=== PATIENT | female | born 1950 | race Caucasian/White ===

== ENCOUNTER 2019-06-02 14:23 | Emergency (ER) | payer MEDICARE, SELFPAY ==
--- NOTE | ~2019-06-02 | CT_ITS ---
EXAMINATION: CT abdomen pelvis wo con DATE: 06/02/2019 15:24 INDICATION: Right flank pain TECHNIQUE: Computed tomography (CT) of the abdomen and pelvis was performed without intravenous contr ast. Automated exposure control and iterative reconstruction technique were employed. Exam dose: 256 .43 mGy-cm total exam DLP. COMPARISON: None. FINDINGS: Normal heart size. No pericardial or pleural effusion. The liver, gallbladder, spleen, pancreas, adrenal glands are unremarkable. No bile duct or pancreati c duct dilatation. No renal mass lesion is evident on this limited noncontrast examination. There are several nonobstructing small left renal calculi. There is a 3 mm obstructing right ureterovesical calculus, with moderate right hydronephrosis. There is an 8.5 mm calculus in the dependent aspect of the right renal pelvis, measuring 1398 Hounsfi eld units. There is air in the right renal collecting system, including air in the calyceal region and right coral al pelvis, and air in the urinary bladder, suggesting either recent instrumentation or infection. Small sliding hiatal hernia. Normal appendix. Diverticulosis of the right and especially prominent at the left colon, particularly sigmoid colon. No evidence of diverticulitis. No bowel obstruction or free air. There is atherosclerotic calcification of the abdominal aorta and iliac arteries. Old fracture deformity of the right proximal femur. Chronic expanded sacral neural foramina. IMPRESSION: 3 mm obstructing right ureterovesical calculus, with moderate right hydronephrosis 8.5 mm calculus in the dependent aspect of the right renal pelvis Air in the right renal collecting system, including air in the calyceal region and right renal pelvis , and air in the urinary bladder, suggesting either recent instrumentation or infection Small sliding hiatal hernia Diverticulosis of the colon Reviewed, dictated and finalized at [facility]. Reviewed, dictated and finalized at location [facility]. EL SERVICE APPRENTICE IMPRESSION: 3 mm obstructing right ureterovesical calculus, with moderate righ t hydronephrosis 8.5 mm calculus in the dependent aspect of the right renal pelvis Air in the right renal collecting system, including air in the calyceal region and right renal pelvis, and air in the urinary bladder, suggesting either recen t instrumentation or infection Small sliding hiatal hernia Diverticulosis of the colon
[2019-06-02 14:35] VITALS: BP 134/71; PULSE 52; RESP 20; TEMP 36.6; O2SAT 98
--- NOTE | 2019-06-02 14:49 | ECG_ITS ---
Measurements Intervals [place] Rate: 49 P: 44 TX: 154 QRS: 38 QRSD: 86 T: 73 QT: 447 QTc: 406 Interpretive Statements SINUS BRADYCARDIA EARLY PRECORDIAL R/S TRANSITION ST-T WAVE ABNORMALITY IN ANTERIOR LEADS- CONSIDER ISCHEMIA BASELINE ARTIFACT- I, II, III, AVR, AVL, AVF, V6 ABNORMAL ECG Electronically Signed On 06-02-2019 16:20:03 CYLINDER PRESS FEEDER by John Diaz D.O.
[2019-06-02] MEDS: SODIUM CHLORIDE 0.9% IV 1,000 ML 999 ML IV CONT (14:57)
[2019-06-02] MEDS: ONDANSETRON INJ 4 MG/2 ML VIAL IV PUSH (14:57)
[2019-06-02] MEDS: KETOROLAC 30 MG/ML VIAL (*BKC) IV PUSH (14:58)
[2019-06-02 15:16] LABS: Hemoglobin 12.9 g/dL (11.7-13.8); Mean Corpuscular HGB Conc 33.9 g/dL (32.0-36.0); Mean Corpuscular Hemoglobin 29.7 pg (27.0-31.0); Mean Corpuscular Volume 87.4 fL (78.0-102.0); Mean Platelet Volume 8.7 fl (9.2-11.8); Platelet Count Result 256 K/mm3 (150-420); Red Blood Count 4.35 M/mm3 (4.20-5.40); Red Cell Distribution Width 13.3 % (11.6-14.4); White Blood Count 9.6 K/mm3 (4.8-10.8)
[2019-06-02 15:35] LABS: Alanine Aminotransferase 10 U/L (14-59); Albumin Level 3.4 g/dL (3.4-5.0); Alkaline Phosphatase 62 U/L (46-116); Anion Gap 13.8 mmol/L (7-16); Aspartate Amino Transferase 13 U/L (15-37); Bilirubin,Total 0.3 mg/dL (0.00-1.00); Blood Urea Nitrogen 13 mg/dL (7-18); Calcium 8.5 mg/dL (8.5-10.1); Carbon Dioxide 27 mmol/L (21-32); Chloride 105 mmol/L (98-108); Estimated CRCL calculation 52 ml/min; Estimated Glomerular Filt Rate 58; Glucose 113 mg/dL (70-99); Lipase 134 U/L (73-393); Osmolality Calculated 295 mOsm/kg (285-295); Potassium 3.8 mmol/L (3.5-5.1); Sodium 142 mmol/L (136-145)
[2019-06-02 15:39] LABS: Troponin I < 0.02 ng/mL (0.00-0.056)
--- NOTE | 2019-06-02 16:27 | ED.ABDPAIN ---
HPI - Abdominal Pain General Chief Complaint: Abdominal Pain Stated Complaint: possible kidney stone Source: patient Mode of arrival: ambulatory Limitations: no limitations History of Present Illness HPI narrative: 69-year-old female presents to the emergency department with right flank pain with some currently no dysuria no hematuria no fever or chills, patient has some right flank pain started [id number] prior to arrival to the emergency department rates her pain about 8/10 with some nausea and episode of vomiting with some no abdominal pain no chest pain no shortness of breath does have a history of atherosclerotic heart disease, hypertension, reflux disease hyperlipidemia. MD elicited complaint: flank pain Pertinent past history: kidney stones Onset (ago): hour(s) Pain Consistency: constant Location: R flank Severity: moderate Pain scale (0-10): 8 Radiation: none Exacerbating factors: vomiting Relieving factors: nothing Associated symptoms: nausea and vomiting Related Data Home Medications Medication Instructions Recorded Confirmed alendronate 70 mg PO WEEKLY 06/02/19 06/02/19 aspirin [Aspirin Low Dose] 81 mg PO DAILY 06/02/19 06/02/19 hydroxyzine HCl 25 mg PO HS PRN 06/02/19 06/02/19 isosorbide mononitrate 15 mg PO DAILY 06/02/19 06/02/19 lisinopril 10 mg PO DAILY 06/02/19 06/02/19 metoprolol tartrate 50 mg PO Q12H 06/02/19 06/02/19 omeprazole 20 mg PO DAILY 06/02/19 06/02/19 oxycodone 5 mg PO DAILY PRN 06/02/19 06/02/19 rosuvastatin 40 mg PO DAILY 06/02/19 06/02/19 Allergies Allergy/AdvReac Type Severity Reaction Status Date / Time bee venom protein (honey bee) Allergy Rash Verified 06/02/19 15:25 [bees] gadobenic acid Allergy Rash Verified 06/02/19 15:25 [From contrast - MRI] Penicillins Allergy Rash Verified 06/02/19 15:25 Review of Systems Review of Systems: All systems reviewed & are unremarkable except as noted in HPI and below PMFSH Past Medical History Medical History CAD (coronary artery disease) HLD (hyperlipidemia) HTN (hypertension) Osteoporosis Exam Const: General: no acute distress and alert Orientation/consciousness: patient oriented x3 HENMT: Head: normal to inspection Eyes: Conjunctivae: conjunctivae normal Pupils: Equal, round and reactive pupils present Neck: Neck: normal visual inspection Chest: Chest palpation & inspection: normal inspection of the chest Resp: Effort & Inspection: normal respiratory effort Auscultation: clear to auscultation bilaterally Cardio: Rate: regular rate and bradycardic GI: GI Palp: Yes Soft to palpation : General: Yes CVA tenderness Back/Spine/Pelvis: Back: CVA tenderness Skin: General skin exam: normal color Rashes: no rashes Neuro: General: patient oriented x3, moves all extremities and no meningeal signs Extrem: General: normal to inspection Psych: Mental Status: mental status grossly normal Course Vital Signs Vital signs: Vital Signs Temperature 36.6 C 06/02/19 14:35 Pulse Rate 52 L 06/02/19 14:35 Respiratory Rate 06/02/19 14:35 Blood Pressure 134/71 06/02/19 14:35 Pulse Oximetry 98 06/02/19 14:35 Temperature 36.6 C 06/02/19 14:35 Pulse Rate 52 L 06/02/19 14:35 Respiratory Rate 06/02/19 14:35 Blood Pressure 134/71 06/02/19 14:35 Pulse Oximetry 98 06/02/19 14:35 MDM - Abdominal Pain Lab Data Attestation: I reviewed the patient's lab results. Result diagrams: 06/02/19 15:08 06/02/19 15:08 Labs: Lab Results 06/02/19 06/02/19 Range/Units 15:08 15:08 WBC 9.6 (4.8-10.8) K/mm3 RBC 4.35 (4.20-5.40) M/mm3 Hgb 12.9 (11.7-13.8) g/dL Hct 38.0 (35.0-42.0) % MCV 87.4 (78.0-102.0) fL MCH 29.7 (27.0-31.0) pg MCHC 33.9 (32.0-36.0) g/dL RDW 13.3 (11.6-14.4) % Plt Count 256 (150-420) K/mm3 MPV 8.7 L (9.2-11.8) fl Sodium 142
[2019-06-02 17:02] VITALS: BP 110/64; PULSE 62; RESP 18; O2SAT 94
== END 2019-06-02 17:02 | disposition home or self-care (01) ==
PROVIDERS: Emergency Provider Emergency Medicine
DX: N20.0 Calculus of kidney (principal); I25.10 Atherosclerotic heart disease of native coronary artery without angina pectoris; E78.5 Hyperlipidemia, unspecified; I10 Essential (primary) hypertension; M81.0 Age-related osteoporosis without current pathological fracture
CPT/HCPCS: 36415; 74176; 80053; 83690; 84484; 85027; 93005; 96361; 96374; 96375; 99284; J1885; J2405; J7030

== ENCOUNTER 2019-06-06 19:08 | Emergency (ER) | payer MEDICARE, OTHER, SELFPAY ==
--- NOTE | ~2019-06-06 | XR_ITS ---
EXAMINATION: XR chest port-a-cath/central INDICATION: Central line placement TECHNIQUE: Portable AP chest at 2324 hours with expiration and inspiration COMPARISON: 1956 hours FINDINGS: A right subclavian central venous catheter is been inserted which ends with its tip in the proximal superior vena cava. No pneumothorax is identified. The lungs are free of acute opacities. Th ere is no pleural effusion. The heart size is upper limits of normal for technique. IMPRESSION: 1. Right subclavian central venous catheter insertion. No pneumothorax. Reviewed, dictated and finalized at location [facility]. ITURE PAINTER
--- NOTE | ~2019-06-06 | CT_ITS ---
EXAMINATION: CT brain wo con INDICATION: Transient alteration of awareness COMPARISON: None TECHNIQUE: Standard unenhanced head CT. The dose-length product (DLP) was 529.67 mGy-cm. The mA was a djusted according to patient size. Iterative reconstruction technique was employed. FINDINGS: There is no acute intraparenchymal hemorrhage. No evidence of mass lesion. No evidence of a cute infarction. There is mild periventricular and subcortical hypodensity probably related to small vessel ischemic disease. There is mild prominence of the sulci and ventricles related to cerebral atr ophy. Intracranial calcified cerebral atherosclerosis is noted. There are no extra-axial collections. There is no mass effect or midline shift. Changes in the globes are likely from ocular lens surgery. The visualized sinuses and mastoid air cells are well aerated. IMPRESSION: 1. No acute intracranial abnormality. 2. Age related findings. Reviewed, dictated and finalized at location A. MBLER ARRANGER
--- NOTE | ~2019-06-06 | XR_ITS ---
EXAMINATION: XR chest 1V portable INDICATION: Weakness and chills TECHNIQUE: Portable AP chest at 1956 hours COMPARISON: None available FINDINGS: The lungs are free of acute opacities. There is no pleural effusion or pneumothorax. The ca rdiomediastinal silhouette is normal for technique. The visualized osseous structures are unremarkabl e. IMPRESSION: 1. No acute cardiopulmonary abnormality. Reviewed, dictated and finalized at location A. NTORY REPRESENTATIVE
[2019-06-06 19:15] VITALS: BP 87/49; PULSE 74; RESP 16; TEMP 37; O2SAT 95
[2019-06-06] MEDS: SODIUM CHLORIDE 0.9% IV 1,000 ML 999 ML IV CONT (19:45)
--- NOTE | 2019-06-06 19:45 | ECG_ITS ---
Measurements Intervals [place] Rate: 72 P: 28 NV: 147 QRS: -1 QRSD: 88 T: 40 QT: 397 QTc: 434 Interpretive Statements SINUS RHYTHM RSR' IN V1 OR V2, CONSIDER RIGHT VENTRICULAR HYPERTROPHY OR RIGHT VCD LOW QRS VOLTAGE IN PRECORDIAL LEADS BORDERLINE ST-T WAVE ABNORMALITY- ANTERIOR LEADS BASELINE ARTIFACT- I, II, AVR BORDERLINE ECG Electronically Signed On 06-07-2019 7:15:49 WHEEL INSPECTOR by John Diaz D.O.
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
--- NOTE | 2019-06-06 20:12 | PC.NURSE ---
Pt on bedpan attempting obtain urine sample.
[2019-06-06 20:13] VITALS: BP 132/42
[2019-06-06 20:13] LABS: Hemoglobin 10.2 g/dL (11.7-13.8); Mean Corpuscular Hemoglobin 29.5 pg (27.0-31.0); Mean Corpuscular Volume 86.7 fL (78.0-102.0); Mean Platelet Volume 9.9 fl (9.2-11.8); Platelet Count Result 170 K/mm3 (150-420); Red Blood Count 3.46 M/mm3 (4.20-5.40); Red Cell Distribution Width 15.4 % (11.6-14.4); White Blood Count 10.1 K/mm3 (4.8-10.8)
[2019-06-06 20:29] LABS: BNP 343 pg/mL (0-100)
[2019-06-06 20:32] LABS: Alanine Aminotransferase 24 U/L (14-59); Albumin Level 2.2 g/dL (3.4-5.0); Alkaline Phosphatase 173 U/L (46-116); Anion Gap 20.8 mmol/L (7-16); Aspartate Amino Transferase 105 U/L (15-37); Bilirubin,Total 1.3 mg/dL (0.00-1.00); Blood Urea Nitrogen 75 mg/dL (7-18); Calcium 6.7 mg/dL (8.5-10.1); Carbon Dioxide 18 mmol/L (21-32); Chloride 103 mmol/L (98-108); Creatine Kinase 486 U/L (26-192); Estimated CRCL calculation 8 ml/min; Estimated Glomerular Filt Rate 6; Glucose 75 mg/dL (70-99); Magnesium 1.8 mg/dL (1.8-2.4); Osmolality Calculated 305 mOsm/kg (285-295); Potassium 4.8 mmol/L (3.5-5.1); Sodium 137 mmol/L (136-145); Thyroid Stimulating Hormone 0.68 uIU/mL (0.36-3.74)
[2019-06-06 20:36] LABS: Troponin I < 0.02 ng/mL (0.00-0.056)
[2019-06-06 20:39] LABS: Lactic Acid 1.2 mmol/L (0.4-2.0)
--- NOTE | 2019-06-06 20:43 | PC.NURSE ---
Pt requesting [facility] for transfer. [facility] T[employer] Winder on duty states no beds available. Pt requesting [facility] [place]. edp aware, [facility] contacted.
[2019-06-06 20:51] LABS: CRP > 25.0 mg/dL (0.0-0.9)
[2019-06-06] MEDS: SODIUM CHLORIDE 0.9% IV 1,000 ML 100 ML IV CONT (20:57)
[2019-06-06 21:01] VITALS: BP 80/35; PULSE 77; RESP 16; O2SAT 92
[2019-06-06] MEDS: DOPamine 400 MG/D5W 250 ML 400 MG/250 ML BAG 7.5 MG IV CONT (21:03)
--- NOTE | 2019-06-06 21:09 | PC.NURSE ---
DR. MATSON SPEAKING WITH DR. ATKINSON AT [facility]. HE WILL ACCEPT PT TO ICU. AWAITING BED ASSIGNMENT.
[2019-06-06] MEDS: LACTATED RINGERS 1,000 ML 999 ML IV CONT ×3 (21:19→23:56)
[2019-06-06 21:34] VITALS: BP 74/43; PULSE 77; RESP 18; O2SAT 96
[2019-06-06] MEDS: ONDANSETRON INJ 4 MG/2 ML VIAL IV PUSH ×3 (21:36→23:55)
[2019-06-06] MEDS: PANTOPRAZOLE SODIUM IV 40 MG VIAL IV PUSH (22:03)
[2019-06-06] MEDS: METOCLOPRAMIDE HCL INJ 10 MG/2 ML VIAL 5 MG IV PUSH (22:31)
--- NOTE | 2019-06-06 22:45 | PC.NURSE ---
[facility] here to transport pt. Pt moved to ems stretcher upon blood pressure recheck pt had unresponsive episode. Pt moved back to er stretcher and placed on nonrebreather, pt slowly coming to. Pt responding to painful stimuli. [facility] [place] updated. [facility] requests to have central line placed prior to transfer. Advised of [facility] of transportation limitations verbalized to transfer line.
--- NOTE | 2019-06-06 22:50 | PC.NURSE ---
[facility] at bedside attempting central line insertion with tech and rn at bedside. [facility] declined transport, [facility] declined transport, [facility] has no ALS crew available at this time. Pt answering questions appropriately. family in waiting room and updated on status.
[2019-06-06 23:03] VITALS: BP 105/53; PULSE 86; RESP 20; O2SAT 100
--- NOTE | 2019-06-06 23:16 | PC.NURSE ---
Central line insertion per DR. Frances to right subclavian. pt unable to consent due to emergent nature and pts initial ams.
--- NOTE | 2019-06-06 23:20 | PC.NURSE ---
update to wally CONTRERAS at [facility], dr lew speaking with DR. Mccray. [facility] contacted for transfer.
--- NOTE | 2019-06-06 23:30 | PC.NURSE ---
[facility] called to state they are flying and will accept pt for transfer.
--- NOTE | 2019-06-06 23:48 | PC.NURSE ---
Pt in [facility], speaking with staff. family in waiting room. Awaiting [facility].
[2019-06-06] MEDS: NOREPINEPHRINE BITARTRATE 4 MG/4 ML AMPUL ×2 (23:52)
[2019-06-06] MEDS: DEXTROSE 5% IN WATER 250 ML 7.5 ML (23:52)
[2019-06-06] MEDS: DEXAMETHASONE SOD PHOS INJ 4 MG/ML VIAL 10 MG IV PUSH (23:53)
--- NOTE | 2019-06-07 00:16 | PC.NURSE ---
Ladonna at [facility] transfer line updated about pts transfer and pt status.
[2019-06-07 00:17] VITALS: BP 80/42; RESP 20; O2SAT 93
== END 2019-06-07 00:21 | disposition short-term general hospital (02) ==
PROVIDERS: Emergency Provider Surgery
DX: N39.0 Urinary tract infection, site not specified (principal); N20.0 Calculus of kidney; N20.1 Calculus of ureter; E86.0 Dehydration; I95.9 Hypotension, unspecified; I25.10 Atherosclerotic heart disease of native coronary artery without angina pectoris; E78.5 Hyperlipidemia, unspecified; I10 Essential (primary) hypertension
CPT/HCPCS: 36556; 36415; 70450; 71045; 80053; 82550; 82553; 83605; 83735; 83880; 84443; 84484; 85027; 86140; 87040; 87077; 87186; 93005; 96361; 96365; 96366; 96367; 96375; 96376; 99285; C1751; C9113; J1100; J1265; J2405; J2765; J3370; J7030; J7060; J7120